=== PATIENT | male | born 1955 | race Caucasian/White ===

== ENCOUNTER 2018-09-13 21:08 | Emergency (ER) | payer SELFPAY ==
[2018-09-13] MEDS: 0.9 % SODIUM CHLORIDE 1,000 ML IV ONE ×2 (21:30→23:53)
[2018-09-13] MEDS: ONDANSETRON HCL/PF 4 MG/ 2ML VIAL IVP ONE (21:30)
--- NOTE | 2018-09-13 21:33 | ED Physician Documentation ---
Syncope/Near Syncope - HISTORIAN Historian: patient, spouse - [facility] Chief Complaint: Near Syncope Additional Information: Patient is a 63-year-old male that presents to the ER with his . states that he had been outside throwing hay- he walked back to the house and sat on the porch and yelled for his around 17:30. Patient was c/o weakness, dizziness, and all over tingling. thought it was the [employer] meal he had earlier- Patient denies any chest pain- no symptoms of acute stroke- states he has a right inguinal hernia that he is scheduled for surgery in September. He is a 1 ppd smoker. He was started on Amlodipine 2 months ago. He had a colonoscopy at the [facility] on the and had polyps removed. Witnessed: No (he called for ) Witnessed By: family Position at Time of Episode: other (walking from the field) Activity at Time of Episode: throwing hay Symptoms Prior to Episode: none Character of Events(s): felt faint. denies: lost consciousness, became unresponsive, collapsed Last known Well Date: 09/13/18 Last Known Well Time: 17:30 Last known Well Code/Unknown Code: Known Symptoms after Event: denies: confused after event, incontinent of urine, incontinent of stool Location of Injury: none Associated Symptoms: nausea, vomiting, weakness, dizziness Further Comments: no - ROS CONST: denies: recent illness EYES/ENT: none GI/: denies: diarrhea, problems urinating MS/SKIN/LYMPH: denies: rash NEURO/PSYCH: denies: confusion - PAST HX Cardiac Disease: none PE Risk Factors: hypertension Other History: Other (colon polyps) Surgeries/Procedures: other (inguinal hernia, knee) Immunizations: UTD. denies: influenza, pneumovax Allergies/Adverse Reactions: Allergies Allergy/AdvReac Type Severity Reaction Status Date / Time Penicillins Allergy Verified 09/13/18 21:30 - SOCIAL HX Smoking History: greater than 1 pack/day Alcohol Use: none Drug Use: none - FAMILY HX Family History: none - VITAL SIGNS Vital Signs: Vital Signs Temp Pulse Resp BP Pulse Ox 98.7 F 64 14 153/75 100 09/13/18 21:09 09/13/18 22:09 09/13/18 22:09 09/13/18 22:09 09/13/18 22:09 Progress - Progress Progress: Patient continues to have nausea and vomiting- no relief with Zofran- CT called and patient is still vomiting-will give Phenergan- 23:00 Phenergan has worked- pt no longer c/o nausea- he is drowsy from the phenergan but states he feels rested ED Results Lab/Radiology - Lab Results Lab Results: Lab Results 09/13/18 09/13/18 09/13/18 21:15 21:15 21:15 WBC 9.50 K/ul K/ul (4.00-12.00) RBC 4.72 M/ul M/ul (3.90-5.20) Hgb 11.4 g/dL L g/dL (12.0-18.0) Hct 35.5 % L % (37.0-53.0) MCV 75.0 fl L fl (80.0-100.0) MCH 24.2 pg L pg (28.0-34.0) MCHC 32.1 g/dL g/dL (30.0-36.0) RDW 18.4 % H % (11.3-14.3) Plt Count 300 K/mm3 K/mm3 (130-400) Neut % (Auto) 61.0 % % (39.0-79.0) Lymph % (Auto) 32.5 % % (16.0-50.0) Lewis % (Auto) 4.8 % % (0.0-11.0) Eos % (Auto) 1.2 % % (0.0-6.8) Baso % (Auto) 0.5 (0.0-1.5) Neut # (Auto) 5.8 # k/uL # k/uL (1.4-7.7) Lymph # (Auto) 3.1 # k/uL # k/uL (0.6-4.0) Lewis # (Auto) 0.5 # k/uL # k/uL (0.0-0.9) Eos # (Auto) 0.1 # k/uL # k/uL (0.0-0.6) Baso # (Auto) 0.1 # k/uL # k/uL (0.0-0.5) Sodium 136 mmol/L mmol/L (136-145) Potassium 3.3 mmol/L L mmol/L (3.5-5.1) Chloride 99 mmol/L mmol/L (98-107) Carbon Dioxide 28 mmol/L mmol/L (22-30) BUN 10 mg/dL mg/dL (9-20) Creatinine 0.92 mg/dL mg/dL (0.66-1.25) Est GFR ( Amer) > 60 (60 - ) Est GFR (Non-Af Amer) > 60 (60 - ) Glucose 144 mg/dL H mg/dL (74-106) Calcium 8.5 mg/dL mg/dL (8.4-10.2) Total Bilirubin < 0.1 mg/dL L mg/dL (0.2-1.3) AST 23 U/L U/L (15-46) ALT < 6 U/L L U/L (13-69) Alkaline Phosphatase 81 U/L U/L (38-126) Creatine Kinase 67 U/L U/L (55-170) CK-MB (CK-2) 1.3 ng/mL ng/mL (0.0-5.6) Troponin I < 0.03 ng/mL L ng/mL (0.03-0.06) Total Protein 8.1 g/dL g/dL (6.3-8.2) Albumin 4.1 g/dL g/dL (3.5-5.0) - Radiology Radiology Impressions: EKG NSR RATE OF 62 Computed tomography head without contrast History: Near syncope and nausea Findings: Transverse brain sections are obtained without contrast revealing mild cerebral atrophy and minimal periventricular white matter hypoattenuation. Wang-white differentiation is intact. There is no intracranial hemorrhage, mass effect, fluid collection, or skull lesion. Impression: Mild cerebral atrophy and minimal chronic small vessel ischemic gliosis in periventricular white matter. Electronically signed on Sep 13, 2018 10:39:35 PM CDT by: Fabrice Tapia Chest two views History: Near syncope Findings: Low lung volumes are observed without confluent infiltrate or pleural effusion. Bronchovascular crowding is present bilaterally. Heart size is normal. Aortic atherosclerosis is noted. Impression: Negative expiratory chest. Electronically signed on Sep 13, 2018 10:40:28 PM CDT by: Fabrice Tapia - Orders Orders: ED Orders Category Date Time Status Continuous EKG monitoring Q30M Care 09/13/18 21:16 Active Continuous Pulse Oximetry Q30M Care 09/13/18 21:[address] IV Lock 1T Care 09/13/18 21:16 Active CHEST 2VIEW [RAD] Stat Exams 09/13/[address] BRAIN W/O CONTRAST Stat Exams 09/13/18 Completed CBC/PLATELET/DIFF Routine Lab 09/13/18 21:15 Completed CKMB Stat Lab 09/13/18 21:15 Completed CMP Routine Lab 09/13/18 21:15 Completed CREATINE KINASE Routine Lab 09/13/18 21:15 Completed INFLUENZA A&B Stat Lab 09/13/18 Uncollected TROPONIN I (cTnI) Stat Lab 09/13/18 21:15 Completed 0.9 % Sodium Chloride [Normal Saline] 1,000 ml Med 09/13/18 21:23 Discontinued IV .STK-MED 0.9 % Sodium Chloride [Normal Saline] 1,000 ml Med 09/13/18 21:23 Discontinued IV Q1H Chem Sticks Med 09/14/18 21:19 Once 1 each MC NOW ONE Ondansetron HCl Rapdis [Zofran Odt] Med 09/13/18 23:09 Discontinued 8 mg PO TAKE HOME ONE Ondansetron HCl/Pf [Zofran] Med 09/13/18 21:23 Discontinued 4 mg .ROUTE .STK-MED ONE Ondansetron HCl/Pf [Zofran] Med 09/13/18 21:23 Discontinued 4 mg IVP NOW ONE Promethazine HCl [Phenergan] Med 09/13/18 22:04 Discontinued 25 mg .ROUTE .STK-MED ONE Promethazine HCl [Phenergan] 25 mg Med 09/13/18 22:04 Discontinued 0.9 % Sodium Chloride [Normal Saline] 50 ml IV NOW EKG WITH COMPARISON Stat Ther 09/13/18 21:16 Ordered Syncope Physical Exam - Physical Exam General Appearance: moderate distress EENT: PERRL, pharynx nml Neck/Back: neck supple, no carotid bruit Respiratory: no resp distress, breath sounds normal CVS: heart sounds normal, equal pulses Abdomen: non-tender, nml bowel sounds Skin: pallor Extremities: non-tender - Neuro/Psych Higher Functions: alert, oriented x3, no evidence of acute CVA Cranial Nerves: denies: facial droop, tongue deviation (L) Sensorimotor: nml motor response, nml sensory response Discharge Clincal Impression: Near syncope, Nausea & vomiting Referrals: Primary Doctor,No [Primary Care Provider] - 2 Days Additional Instructions: Increase fluid intake (no caffeine) Stop Smoking Eat a balanced diet Follow up with PCP next week for follow up Comments: 23:00 Discussed with patient admitting patient observation and monitoring- but patient is wanting to go home- states that she will watch him and family are available if anything is needed. Condition: Stable Disposition: 01 HOME, SELF-CARE Decision to Admit: NO Decision Time: 23:40
[2018-09-13 21:45] LABS: BASOPHILS % 0.5 (0.0-1.5); EOSINOPHILS % 1.2 % (0.0-6.8); MEAN CORPUSCULAR HEMOGLOBIN 24.2 pg (28.0-34.0); MONOCYTES % 4.8 % (0.0-11.0); NEUTROPHILS # 5.8 # k/uL (1.4-7.7)
[2018-09-13 21:51] LABS: eGFR (Non-African) > 60
[2018-09-13] MEDS ORDERED: PROMETHAZINE HCL 25 MG/ML VIAL ONE (22:04)
[2018-09-13] MEDS: PROMETHAZINE HCL 25 MG in 0.9 % SODIUM CHLORIDE 50 ML IV ONE (22:15)
[2018-09-13 22:50] VITALS: BP 153/75
[2018-09-13] MEDS: ONDANSETRON HCL 4 MG TAB.RAPDIS PO ONE (23:15)
--- NOTE | 2018-09-13 23:15 | Diagnostic Imaging Report ---
KARY RYAN [facility] [id number] [facility] [address] [place] [address]. [id number] Report Submission Date: Sep 13, 2018 10:39:35 PM CDT Patient Study Name: SARABJIT FERNANDEZ Date: Sep 13, 2018 10:04:09 PM CDT Modality Type: CT\SR Gender: M Description: CT BRAIN W/O CONTRAST : 53 Institution: [facility] Physician: KARY RYAN Computed tomography head without contrast History: Near syncope and nausea Findings: Transverse brain sections are obtained without contrast revealing mild cerebral atrophy and minimal periventricular white matter hypoattenuation. Wang-white differentiation is intact. There is no intracranial hemorrhage, mass effect, fluid collection, or skull lesion. Impression: Mild cerebral atrophy and minimal chronic small vessel ischemic gliosis in periventricular white matter. Electronically signed on Sep 13, 2018 10:39:35 PM CDT by: Fabrice BAUTISTA
--- NOTE | 2018-09-13 23:16 | Diagnostic Imaging Report ---
KARY RYAN [facility] [id number] [facility] [address] [address] Report Submission Date: Sep 13, 2018 10:40:28 PM CDT Patient Study Name: SARABJIT FERNANDEZ Date: Sep 13, 2018 9:20:44 PM CDT Modality Type: DX Gender: M Description: CHEST 2VIEW : 53 Institution: [facility] Physician: KARY RYAN Chest two views History: Near syncope Findings: Low lung volumes are observed without confluent infiltrate or pleural effusion. Bronchovascular crowding is present bilaterally. Heart size is normal. Aortic atherosclerosis is noted. Impression: Negative expiratory chest. Electronically signed on Sep 13, 2018 10:40:28 PM CDT by: Fabrice BAUTISTA
[2018-09-13] MEDS: ONDANSETRON HCL/PF 4 MG/ 2ML VIAL ONE (23:53)
== END 2018-09-13 23:22 | disposition home or self-care (01) ==
LOC: ED 21:08
DX: R55 Syncope and collapse (principal); R11.2 Nausea with vomiting, unspecified
CPT/HCPCS: 36415; 70450; 71046; 80053; 82550; 82553; 84484; 85025; 96365; 96375; 99284; 99285; J2405; J2550; A9270; J7030; S1016